=== PATIENT | female | born 1950 | race Caucasian/White ===

== ENCOUNTER → 2020-09-14 | Outpatient (CLI) | payer MEDICARE, OTHER ==
[~2020-09-14] MED LIST: ALDACTONE25 MG PO; CLARITIN10 MG PO; ECOTRIN81 MG PO; FARXIGA5 MG PO; FEOSOL325 MG PO; GLUCOTROL5 MG PO; HUMALOG100 UNIT/2 SC; HYDRALAZINE HCL50 MG PO; ISOSORBIDE MONO60 MG PO; KLONOPIN TAB 00.5 MG PO; KLONOPIN1 MG PO; LANTUS SOL100 UNIT/1 SC; LANTUS SOL100 UNIT/1 SQ; LASIX40 MG PO; LIORESAL TAB 1010 MG PO; LIPITOR TAB 2020 MG PO; LOSARTAN POTAS100 MG PO; MIRALAX17 GM PO; NITROSTAT0.4 MG SL; OZEMPIC0.25 MG/0. SQ; PLAVIX 75 MG TA75 MG PO; PRINIVIL10 MG PO; PROTONIX40 MG PO; PROVENTIL HFA6.7 GM INH; RANEXA1000 MG PO; SINGULAIR10 MG PO; STIOLTO RESPIMAT INH; SYNTHROID175 MCG PO; TOPROL XL100 MG PO; TYLENOL 325MG325 MG PO; ULTRAM50 MG PO; VITAMIN B-121000 MCG PO; VITAMIN D250000 UNIT PO; VITAMIN D31000 UNI1 PO; VOLTAREN100 GM TP; ZETIA10 MG PO; ZOFRAN4 MG PO; ZOLOFT50 MG PO
== END ==
LOC: NM 08:26
DX: I20.9 Angina pectoris, unspecified (principal); R94.39 Abnormal result of other cardiovascular function study
CPT/HCPCS: 78452; A9502; J2785

== ENCOUNTER → 2020-09-15 | Outpatient (CLI) | payer MEDICARE, OTHER | LOC: NM 09:20 | DX: I20.9 Angina pectoris, unspecified (principal) ==

== ENCOUNTER → 2020-11-23 | Outpatient (CLI) | payer MEDICARE, OTHER ==
[2020-11-23 09:25] LABS: HEMOGLOBIN 12.3 gm/dl (12.3-15.3); RED BLOOD COUNT 4.36 M/UL (4.00-5.10); WHITE BLOOD COUNT 7.5 K/UL (4.5-11.0)
== END ==
LOC: LAB 08:58
PROVIDERS: Internal Medicine Cardiovascular Disease
DX: I25.119 Atherosclerotic heart disease of native coronary artery with unspecified angina pectoris (principal); R94.39 Abnormal result of other cardiovascular function study; I51.7 Cardiomegaly
CPT/HCPCS: 36415; 71046; 80048; 85025

== ENCOUNTER 2020-11-25 08:37 | Outpatient (CLI) | payer MEDICARE, OTHER ==
[~2020-11-25] VITALS: Ht 162.6 cm; Wt 134.3 kg
[~2020-11-25 08:37] MED LIST changes: -ALDACTONE25 MG PO; -FARXIGA5 MG PO; -HUMALOG100 UNIT/2 SC; -HYDRALAZINE HCL50 MG PO; -LOSARTAN POTAS100 MG PO; -OZEMPIC0.25 MG/0. SQ; -ZETIA10 MG PO
[2020-11-25] MEDS ORDERED: ZETIA10 MG PO (09:39)
[2020-11-25] MEDS ORDERED: FARXIGA5 MG PO (09:40)
[2020-11-25] MEDS ORDERED: HUMALOG100 UNIT/2 SC (09:41)
[2020-11-25] MEDS ORDERED: HYDRALAZINE HCL50 MG PO (09:43)
[2020-11-25] MEDS ORDERED: MIRALAX17 GM PO (09:46)
[2020-11-25] MEDS ORDERED: LOSARTAN POTAS100 MG PO (09:46)
[2020-11-25] MEDS ORDERED: OZEMPIC0.25 MG/0. SQ (09:47)
[2020-11-25] MEDS ORDERED: ALDACTONE25 MG PO (09:48)
[2020-11-26 03:07] LABS: HEMOGLOBIN 11.3 gm/dl (12.3-15.3); RED BLOOD COUNT 4.02 M/UL (4.00-5.10)
== END 2020-11-26 14:36 | disposition home or self-care (01) ==
LOC: CATH 08:37 → PROG CARE 15:02 → CATH 15:52 → PROG CARE 15:52 → CATH 11-26 14:36
PROVIDERS: Internal Medicine Interventional Cardiology
PROC: 027135Z Dilation of Coronary Artery, Two Arteries with Two Drug-eluting Intraluminal Devices, Percutaneous Approach (ICD-10-PCS; principal; 2020-11-25)
DX: I25.110 Atherosclerotic heart disease of native coronary artery with unstable angina pectoris (principal); T82.855A Stenosis of coronary artery stent, initial encounter; I25.5 Ischemic cardiomyopathy; I47.2 Ventricular tachycardia; I47.1 Supraventricular tachycardia; E78.2 Mixed hyperlipidemia; E03.9 Hypothyroidism, unspecified; G47.33 Obstructive sleep apnea (adult) (pediatric); I13.0 Hypertensive heart and chronic kidney disease with heart failure and stage 1 through stage 4 chronic kidney disease, or unspecified chronic kidney disease; E11.22 Type 2 diabetes mellitus with diabetic chronic kidney disease; N18.9 Chronic kidney disease, unspecified; I50.9 Heart failure, unspecified; J44.9 Chronic obstructive pulmonary disease, unspecified; K21.9 Gastro-esophageal reflux disease without esophagitis; Z95.1 Presence of aortocoronary bypass graft; Z95.5 Presence of coronary angioplasty implant and graft; Z79.82 Long term (current) use of aspirin; Z79.02 Long term (current) use of antithrombotics/antiplatelets; Z79.4 Long term (current) use of insulin; Z79.899 Other long term (current) drug therapy; Z95.810 Presence of automatic (implantable) cardiac defibrillator; Y84.0 Cardiac catheterization as the cause of abnormal reaction of the patient, or of later complication, without mention of misadventure at the time of the procedure
CPT/HCPCS: 36415; 80048; 82962; 85027; 85347; 93005; 99152; 99153; C1725; C1760; C1769; C1874; C1887; C1894; C9600; C9601; G0378; J0461; J1644; J2250; J3010; J7030; Q9965

== ENCOUNTER → 2021-08-01 | Outpatient (CLI) | payer MEDICARE, OTHER ==
[~2021-08-01] MED LIST changes: +ALDACTONE25 MG PO; +FARXIGA5 MG PO; +HUMALOG100 UNIT/2 SC; +HYDRALAZINE HCL50 MG PO; +LOSARTAN POTAS100 MG PO; +OZEMPIC0.25 MG/0. SQ; +ZETIA10 MG PO
== END ==
LOC: HEART 5 07-24 08:30
DX: I20.9 Angina pectoris, unspecified (principal); R94.39 Abnormal result of other cardiovascular function study
CPT/HCPCS: 78452; A9502; J2785

== ENCOUNTER → 2021-12-20 | Outpatient (CLI) | payer MEDICARE, OTHER | LOC: ECHO 09:28 | DX: I48.92 Unspecified atrial flutter (principal); I27.20 Pulmonary hypertension, unspecified; Z95.0 Presence of cardiac pacemaker; I70.0 Atherosclerosis of aorta; I08.1 Rheumatic disorders of both mitral and tricuspid valves | CPT/HCPCS: ECHO; 93306 ==

== ENCOUNTER → 2021-12-22 | Outpatient (CLI) | payer MEDICARE, OTHER ==
[2021-12-22 09:29] LABS: HEMOGLOBIN 10.2 gm/dl (12.3-15.3); RED BLOOD COUNT 3.68 M/UL (4.00-5.10); WHITE BLOOD COUNT 5.7 K/UL (4.5-11.0)
== END ==
LOC: LAB 08:53
PROVIDERS: Internal Medicine Cardiovascular Disease
DX: I48.92 Unspecified atrial flutter (principal); R00.2 Palpitations; R06.02 Shortness of breath
CPT/HCPCS: 36415; 71046; 80048; 85025

== ENCOUNTER → 2022-02-26 | Outpatient (CLI) | payer MEDICARE, OTHER ==
[~2022-02-26] MED LIST changes: +BASAGLAR K100 UNIT/1 SQ; +COREG 25MG TAB25 MG PO; +CYCLOBENZAPRINE5 MG PO; +ELIQUIS5 MG PO; +FERROUS SULFAT324 MG PO; +OMEPRAZOLE40 MG PO; +PROAIR HFA8.5 GM INH; +VITAMIN D31250 MCG PO
== END ==
LOC: LAB 10:36
PROVIDERS: Internal Medicine Cardiovascular Disease
DX: I25.119 Atherosclerotic heart disease of native coronary artery with unspecified angina pectoris (principal); R00.2 Palpitations; I27.20 Pulmonary hypertension, unspecified; I10 Essential (primary) hypertension
CPT/HCPCS: 36415; 80048

== ENCOUNTER → 2022-03-12 | Outpatient (CLI) | payer MEDICARE, OTHER ==
[~2022-03-12] MED LIST changes: +CLARITIN10 M2 PO; +COZAAR100 MG PO; +LANTUS100 UNIT/1 SQ; +NORVASC10 MG PO; +ZAROXOLYN/DIULO5 MG PO
[2022-03-12 12:24] LABS: HEMOGLOBIN 11.4 gm/dl (12.3-15.3); RED BLOOD COUNT 4.18 M/UL (4.00-5.10); WHITE BLOOD COUNT 6.7 K/UL (4.5-11.0)
== END ==
LOC: LAB 11:43
PROVIDERS: Internal Medicine Cardiovascular Disease
DX: I25.119 Atherosclerotic heart disease of native coronary artery with unspecified angina pectoris (principal); R06.02 Shortness of breath
CPT/HCPCS: 36415; 71046; 80048; 85025

== ENCOUNTER → 2022-03-13 | Outpatient (CLI) | payer MEDICARE, OTHER | LOC: CATH 08:30 | DX: I25.118 Atherosclerotic heart disease of native coronary artery with other forms of angina pectoris (principal); I13.0 Hypertensive heart and chronic kidney disease with heart failure and stage 1 through stage 4 chronic kidney disease, or unspecified chronic kidney disease; I50.9 Heart failure, unspecified; E11.22 Type 2 diabetes mellitus with diabetic chronic kidney disease; I48.92 Unspecified atrial flutter; I48.91 Unspecified atrial fibrillation; F41.9 Anxiety disorder, unspecified; F32.A Depression, unspecified; J44.9 Chronic obstructive pulmonary disease, unspecified; K21.9 Gastro-esophageal reflux disease without esophagitis; E78.00 Pure hypercholesterolemia, unspecified; G47.30 Sleep apnea, unspecified; J30.9 Allergic rhinitis, unspecified; E03.9 Hypothyroidism, unspecified; I27.20 Pulmonary hypertension, unspecified; I47.2 Ventricular tachycardia; I25.2 Old myocardial infarction; M81.0 Age-related osteoporosis without current pathological fracture; M19.90 Unspecified osteoarthritis, unspecified site; E66.9 Obesity, unspecified; N18.9 Chronic kidney disease, unspecified; Z79.83 Long term (current) use of bisphosphonates; Z79.02 Long term (current) use of antithrombotics/antiplatelets; Z79.891 Long term (current) use of opiate analgesic; Z79.52 Long term (current) use of systemic steroids; Z79.2 Long term (current) use of antibiotics; Z79.810 Long term (current) use of selective estrogen receptor modulators (SERMs); Z79.01 Long term (current) use of anticoagulants; Z79.84 Long term (current) use of oral hypoglycemic drugs; Z79.4 Long term (current) use of insulin; Z79.890 Hormone replacement therapy; Z87.440 Personal history of urinary (tract) infections; Z95.810 Presence of automatic (implantable) cardiac defibrillator; Z95.5 Presence of coronary angioplasty implant and graft; Z86.16 Personal history of COVID-19; Z90.710 Acquired absence of both cervix and uterus; Z98.51 Tubal ligation status; Z98.49 Cataract extraction status, unspecified eye; Z83.2 Family history of diseases of the blood and blood-forming organs and certain disorders involving the immune mechanism; Z82.61 Family history of arthritis; Z82.5 Family history of asthma and other chronic lower respiratory diseases; Z81.8 Family history of other mental and behavioral disorders; Z82.62 Family history of osteoporosis; Z84.89 Family history of other specified conditions; Z83.3 Family history of diabetes mellitus; Z82.49 Family history of ischemic heart disease and other diseases of the circulatory system; Z82.3 Family history of stroke | CPT/HCPCS: 82962; 99152; 99153; C1760; C1769; J1644; J2250; J3010; J7040; Q9965 ==